=== PATIENT | female | born 1995 | race Caucasian/White ===

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

== ENCOUNTER 2017-11-15 02:30 | Emergency (ER) | payer BC ==
--- NOTE | 2017-11-15 02:55 | ED ---
Laceration/Wound HPI - HPI Summary HPI Summary: This patient is a 22 year old F presenting to [facility] with a chief complaint of laceration to the back of her left shoulder since 01:15 this morning. The patient reports that her symptoms began after she fell onto a broken glass bottle while intoxicated. The patient rates the pain 4/10 in severity. Symptoms aggravated by movement. Symptoms alleviated by nothing. - History of Current Complaint Stated Complaint: LACERATIONS Hx Obtained From: Patient Onset/Duration: Sudden Onset, Lasting Hours - 1 hour, Still Present Aggravating: Movement Alleviating: Nothing Timing: Constant Onset Severity: Mild Current Severity: Mild Pain Intensity: 4 Pain Scale Used: 0-10 Numeric Associated Signs & Symptoms: Pain Related Hx: Recent Trauma - cut by broken glass - Allergy/Home Medications Allergies/Adverse Reactions: Allergies Allergy/AdvReac Type Severity Reaction Status Date / Time No Known Allergies Allergy Verified 11/15/17 02:37 PMH/Surg Hx/FS Hx/Imm Hx Endocrine/Hematology History: Denies: Hx Diabetes Opthamlomology History: Denies: Hx Legally Blind EENT History: Denies: Hx Deafness Neurological History: Reports: Hx Migraine - Surgical History Surgery Procedure, Year, and Place: none Infectious Disease History: No Infectious Disease History: Denies: Traveled Outside the [place] in Last 30 Days - Family History Known Family History: Positive: Cardiac Disease - grandmother, Diabetes - grandmother, Other - Hx breast CA in aunt - Social History Alcohol Use: Daily Alcohol Amount: "Disgustingly excessive" drinking this week. Weekend drink at other times. Hx Substance Use: No Substance Use Type: Reports: Marijuana Substance Use Comment - Amount & Last Used: just tried this week for the first time Hx Tobacco Use: Yes Smoking Status (MU): Current Some Day Smoker Type: Cigarettes - 2 cigarettes/week Review of Systems Negative: Fever Negative: Epistaxis Negative: Chest Pain Negative: Cough Positive: Other - 2cm laceration to back of left shoulder All Other Systems Reviewed And Are Negative: Yes Physical Exam - Summary Physical Exam Summary: Appearance: Well-appearing, Well-nourished, lying in bed comfortable Skin: Warm, dry, no obvious rash, superficial 2 cm laceration to posterior shoulder Eyes: sclera anicteric, no conjunctival pallor ENT: mucous membranes moist Neck: deferred Respiratory: No signs of respiratory distress Cardiovascular: Appears well perfused, pulses are nml Abdomen: deferred Musculoskeletal: Moving all 4 extremities without obvious discomfort Neurological: Awake and alert, mentation is normal, speech is fluent and appropriate Psychiatric: affect is normal, does not appear anxious or depressed Triage Information Reviewed: Yes Vital Signs On Initial Exam: Initial Vitals Temp Pulse Resp BP Pulse Ox 97.7 F 94 16 124/83 97 11/15/17 02:33 11/15/17 02:33 11/15/17 02:33 11/15/17 02:33 11/15/17 02:33 Vital Signs Reviewed: Yes Procedures - Laceration/Wound Repair #1 Location: upper extremity - back of left shoulder Description: Linear Laceration/Wound Explored: clean, no foreign body removed Closure: Skin Adhesive Sterile Dressing Applied?: Yes Diagnostics - Vital Signs Vital Signs Temp Pulse Resp BP Pulse Ox 11/15/17 02:33 97.7 F 94 16 124/83 97 - Laboratory Lab Statement: Any lab studies that have been ordered have been reviewed, and results considered in the medical decision making process. Laceration Repair Course/Dx - Clinical Impression Provider Diagnoses: Laceration of left shoulder Discharge - Sign-Out/Discharge Documenting (check all that apply): Patient Departure - Discharge Plan Condition: Good Disposition: HOME Patient Education Materials: Skin Adhesive Care (ED) Referrals: [facility] [Outside] - If Needed - Billing Disposition and Condition Condition: GOOD Disposition: Home - Attestation Statements Document Initiated by Scribe: Yes Documenting Scribe: Miya Banuelos Provider For Whom Scribe is Documenting (Include Credential): Leo Cramer MD Scribe Attestation: Miya Romero, scribed for Leo Cramer MD on 11/15/17 at 0545. Scribe Documentation Reviewed: Yes Provider Attestation: The documentation as recorded by the scribe, Miya Banuelos accurately reflects the service I personally performed and the decisions made by me, Leo Cramer MD
[2017-11-15 03:03] VITALS: BP 112/71
== END 2017-11-15 03:01 | disposition home or self-care (01) ==
LOC: ED 02:30

== ENCOUNTER 2018-12-03 03:20 | Emergency (ER) | payer BC, OTHER ==
[2018-12-03] MEDS ORDERED: Lidocaine 2% w/ EPI 1:200,000* 20 ML SDV VIAL ONE (03:36)
[2018-12-03] MEDS ORDERED: Lidocaine 2% EPI 1:200000 MPF* 10 ML VIAL INJ ONE (03:38)
[2018-12-03] MEDS ORDERED: Lidocaine 2% w/ EPI 1:200,000* 20 ML SDV VIAL INJ ONE (03:41)
--- NOTE | 2018-12-03 03:41 | ED ---
Laceration/Wound HPI - HPI Summary HPI Summary: This pt is a 23 Y/O F presenting to [facility] with a CC of R ankle laceration that occurred when she kicked through a window. She states that she has been drinking tonight. She states that she was drinking with her friends when she kicked through the window. She denies and cough, N/V, SOB, CP, abdominal pain, and a sore throat. She has no aggravating or alleviating factors. She states that she is not in pain. She has a PMHx of migraines. - History of Current Complaint Stated Complaint: LEG LAC PER PT Hx Obtained From: Patient Mechanism of Injury: Other - Kicked through a window Onset/Duration: Sudden Onset, Still Present Aggravating: Nothing Alleviating: Nothing Timing: Constant Onset Severity: Mild Current Severity: None Pain Intensity: 0 Pain Scale Used: 0-10 Numeric Associated Signs & Symptoms: Negative - cough, N/V, SOB, CP, abdominal pain, and a sore throat. - Allergy/Home Medications Allergies/Adverse Reactions: Allergies Allergy/AdvReac Type Severity Reaction Status Date / Time No Known Allergies Allergy Verified 12/21/17 13:28 Home Medications: Home Medications Sertraline* [Zoloft*] 100 mg PO DAILY 12/03/18 [History Confirmed 12/03/18] PMH/Surg Hx/FS Hx/Imm Hx Previously Healthy: Yes Endocrine/Hematology History: Denies: Hx Diabetes Cardiovascular History: Denies: Hx Hypertension, Hx Pacemaker/ICD History: Denies: Hx Renal Disease Sensory History: Reports: Hx Contacts or Glasses Denies: Hx Legally Blind, Hx Deafness, Hx Hearing Aid Opthamlomology History: Reports: Hx Contacts or Glasses Denies: Hx Legally Blind Neurological History: Reports: Hx Migraine Psychiatric History: Denies: Hx Panic Disorder - Surgical History Surgical History: Yes Surgery Procedure, Year, and Place: WISDOM TEETH - Immunization History Immunizations Up to Date: Yes Infectious Disease History: No Infectious Disease History: Denies: Traveled Outside the [place] in Last 30 Days - Family History Known Family History: Positive: Cardiac Disease - grandmother, Diabetes - grandmother, Other - Hx breast CA in aunt - Social History Occupation: Student - [employer] Lives: Dormitory/Roommates Alcohol Use: Daily Hx Substance Use: Yes Substance Use Type: Reports: Marijuana Hx Tobacco Use: Yes Smoking Status (MU): Current Some Day Smoker Type: Cigarettes - 2 cigarettes/week Review of Systems Negative: Fever, Chills Negative: Sore Throat Negative: Chest Pain Negative: Shortness Of Breath Negative: Abdominal Pain, Vomiting, Nausea Skin: Other - Laceration on R lower extremity All Other Systems Reviewed And Are Negative: Yes Physical Exam - Summary Physical Exam Summary: Appearance: Well-appearing, Well-nourished, lying in bed comfortably Skin: Warm, dry, no obvious rash Eyes: sclera anicteric, no conjunctival pallor ENT: mucous membranes moist, pharynx appears normal Neck: Supple, nontender Respiratory: Clear to auscultation, no signs of respiratory distress Cardiovascular: Normal S1, S2. No murmurs. Normal distal pulses in tibial and radial bilaterally. Abdomen: Soft, nontender, normal active bowel sounds present Musculoskeletal: Normal, Strength/ROM Intact. 7 cm laceration on right anterior leg, edges clean, no visible or palpable foreign body. Neurological: A&Ox3, awake and alert, mentation is normal, speech is fluent and appropriate Psychiatric: affect is normal, does not appear anxious or depressed Triage Information Reviewed: Yes Vital Signs On Initial Exam: Initial Vitals Temp Pulse Resp BP Pulse Ox 98.2 F 138 18 132/88 97 12/03/18 03:21 12/03/18 03:21 12/03/18 03:21 12/03/18 03:21 12/03/18 03:21 Vital Signs Reviewed: Yes Procedures - Sedation Patient Received Moderate/Deep Sedation with Procedure: No - Laceration/Wound Repair 1 Location: Other - R ankle Description: Linear - Lunar Anesthesia: Local, 2.0%, Lido, Epi Length, Depth and Shape: 7 cms Betadine Prep?: No Irrigated w/ Saline (ccs): 200 Laceration/Wound Explored: clean Suture Type: Other - 4.0 etholon Number of Sutures: 11 Layer Closure?: No Sterile Dressing Applied?: Yes Diagnostics - Vital Signs Vital Signs Temp Pulse Resp BP Pulse Ox 12/03/18 03:21 98.2 F 138 18 132/88 97 - Laboratory Lab Statement: Any lab studies that have been ordered have been reviewed, and results considered in the medical decision making process. Laceration Repair Course/Dx - Course Course Of Treatment: This pt is a 23 Y/O F presenting to [facility] with a CC of R ankle laceration that occurred when she kicked through a window. She states that she has been drinking tonight. She states that she was drinking with her friends when she kicked through the window. Her PE found that she had a laceration on her R leg. She received 11 4.0 ethelon sitches with out complication. She will be discharged home with a R leg laceration. - Clinical Impression Provider Diagnoses: Laceration of right lower leg Discharge ED - Sign-Out/Discharge Documenting (check all that apply): Patient Departure - discharge - Discharge Plan Condition: Good Disposition: HOME Patient Education Materials: Care For Your Stitches (ED), Laceration (ED) Referrals: [facility] [Outside] Additional Instructions: Stitches need to be removed in about 10 days, that can be done here or at [facility]. - Billing Disposition and Condition Condition: GOOD Disposition: Home - Attestation Statements Document Initiated by Loren: Yes Documenting Scribe: Alex Davila Provider For Whom Loren is Documenting (Include Credential): Leo Cramer MD Scribe Attestation: IAlex, scribed for Leo Cramer MD on 12/03/18 at 1826. Scribe Documentation Reviewed: Yes Provider Attestation: The documentation as recorded by the Alex beebe accurately reflects the service I personally performed and the decisions made by me, Leo Cramer MD Status of Scribe Document: Viewed
[2018-12-03 04:06] VITALS: BP 0/0
== END 2018-12-03 04:05 | disposition home or self-care (01) ==
LOC: ED 03:20
DX: S91.011A Laceration without foreign body, right ankle, initial encounter (principal); W25.XXXA Contact with sharp glass, initial encounter; Y92.9 Unspecified place or not applicable; Z72.0 Tobacco use; Z79.899 Other long term (current) drug therapy
CPT/HCPCS: 12002; 99282

== ENCOUNTER 2018-12-08 15:50 | Emergency (ER) | payer OTHER ==
[2018-12-08 16:02] VITALS: BP 123/69
--- NOTE | 2018-12-08 18:41 | UC ---
HPI Wound/Suture Re-check - HPI Summary HPI Summary: PATIENT HAD SUTURES PLACED TO HER RIGHT ANTERIOR ANKLE 5 DAYS AGO IN THE ER. IS HERE FOR SUTURE REMOVAL. DENIES ANY DRAINAGE, PAIN OR FEVER. WOUND SEEMS TO BE HEALING WELL. - History Of Current Complaint Chief Complaint: UCWounds Stated Complaint: SUTURE REMOVAL Time Seen by Provider: 12/08/18 16:21 Hx Obtained From: Patient Hx Last Menstrual Period: 1 week ago Onset/Duration: Sudden Onset Severity: Moderate Pain Intensity: 0 Pain Scale Used: 0-10 Numeric - Allergies/Home Medications Allergies/Adverse Reactions: Allergies Allergy/AdvReac Type Severity Reaction Status Date / Time No Known Allergies Allergy Verified 12/08/18 16:01 PMH/Surg Hx/FS Hx/Imm Hx Previously Healthy: Yes - Surgical History Surgical History: Yes Surgery Procedure, Year, and Place: WISDOM TEETH - Family History Known Family History: Positive: Cardiac Disease - grandmother, Diabetes - grandmother, Other - Hx breast CA in aunt - Social History Alcohol Use: Occasionally Alcohol Amount: "Disgustingly excessive" drinking this week. Weekend drink at other times. Substance Use Type: Marijuana Substance Use Comment - Amount & Last Used: just tried this week for the first time Smoking Status (MU): Current Some Day Smoker Type: Cigarettes - 2 cigarettes/week Review of Systems All Other Systems Reviewed And Are Negative: Yes Constitutional: Positive: Negative Skin: Positive: Other - HEALING LACERATION Respiratory: Positive: Negative Cardiovascular: Positive: Negative Gastrointestinal: Positive: Negative Physical Exam Triage Information Reviewed: Yes Appearance: Well-Appearing, No Pain Distress, Well-Nourished Vital Signs: Initial Vital Signs Temp 99.1 F 12/08/18 15:56 Pulse 68 12/08/18 15:56 Resp 16 12/08/18 15:56 BP 123/69 12/08/18 15:56 Pulse Ox 99 12/08/18 15:56 Vital Signs Reviewed: Yes Eyes: Positive: Conjunctiva Clear ENT: Positive: Hearing grossly normal Neck: Positive: Supple Respiratory: Positive: No respiratory distress, No accessory muscle use Cardiovascular: Positive: Pulses Normal Abdomen Description: Positive: Soft Musculoskeletal: Positive: No Edema Neurological: Positive: Alert Psychological: Positive: Age Appropriate Behavior Skin: Positive: Other - HEALING LACERATION RIGHT ANTERIOR RIVERA WITH SUTURE IN PLACE. C/D/I Course/Dx - Course Course Of Treatment: WOUND IS HEALING WELL BUT TOO SOON FOR SUTURE REMOVAL. ADVISED TO RETURN IN ABOUT 5 DAYS AT WHICH POINT SUTURES WILL LIKELY BE REMOVED. - Diagnosis Provider Diagnosis: Encounter for wound re-check Discharge ED - Sign-Out/Discharge Documenting (check all that apply): Patient Departure All imaging exams completed and their final reports reviewed: No Studies - Discharge Plan Condition: Stable Disposition: HOME Patient Education Materials: Laceration (ED) Referrals: Joelle Martin NP [Primary Care Provider] - If Needed Additional Instructions: TOO SOON TO GET THE SUTURES REMOVED. RETURN IN ABOUT 5 DAYS FOR SUTURE REMOVAL. COVER WITH ANTIBIOTIC OINTMENT AND A NONSTICK BANDAGE AT NIGHT FOR THE NEXT 2 DAYS. DO NOT SUBMERGE IN WATER FOR PROLONGED PERIODS OF TIME. SEEK FOLLOW-UP IF YOU DEVELOP SPREADING REDNESS OF THE SKIN, PURULENT DRAINAGE, FEVER , INCREASED PAIN OR ANY OTHER CONCERNING SYMPTOMS. - Billing Disposition and Condition Condition: STABLE Disposition: Home
== END 2018-12-08 16:39 | disposition home or self-care (01) ==
LOC: UCEAST 15:50
DX: Z48.02 Encounter for removal of sutures (principal); F17.210 Nicotine dependence, cigarettes, uncomplicated
CPT/HCPCS: 99211; G0463